=== PATIENT | female | born 1995 | race African-American/Black ===

== ENCOUNTER 2025-01-05 12:48 | Outpatient (CLI) | payer BC, SELFPAY ==
--- OUTSIDE RECORDS SUMMARY | 2025-01-05 12:53 | XMS_ITS | Continuity of Care Document ---
Author Organization [facility] Address [address] [place] [address] Phone Care Team Providers Care Regional Production Manager Name Role Phone Linda OD, Luan Unavailable Unavailable Allergies, Adverse Reactions, Alerts Substance Reaction Status Criticality No Known allergies Procedures Procedure Date Office/outpatient Visit, Est Vision Svcs Frames Purchases SV Poly Carb Sph Stewart To +/- 4 013 Anti-reflective Coating Office/outpatient Visit, Est Advance Directives Directive Yes / No Effective Date File Name Resuscitation Not Answered N/A N/A Life Support Not Answered N/A N/A Intubation Not Answered N/A N/A Antibiotics Not Answered N/A N/A IV Fluid Support Not Answered N/A N/A Tube Feed Not Answered N/A N/A Other Directive N/A N/A WARNING:The information contained in this section is historical and is provided for information only and does not constitute a legal document or any assurance that the information is still accurate. Please verify the information with the lopez of the legal document before using it for clinical purposes. Encounters Encounter Description Practice Location Reason(s) For Visit Diagnoses Date Provider Providers Copied on Encounter Office/outpat ient Visit, [facility], [address], [place], [place], [id number], tel:[phone] SEC [place] REFRACTIVE AMBLYOPIA Linda Roland. [address], [address], [place]. tel:[phone] Referring Provider: Luan Penn, [address] [facility] [address], [address]. tel:[phone] [facility], [address], [place], [place], [id number], [place] tel:[phone] SEC [facility] No Information [facility] . [address] [facility], [facility] [address], [place], [id number], [place]. tel:[phone] Referring Provider: Luan Penn, [address], [address]. tel:[phone] sulting Provider: Sonya Mariee, [address] [place], [address]. Office/outpat ient Visit, [facility], [address], [place], [place], [id number], [place] tel:[phone] SEC [facility] No Information Linda Roland. [address], [address], [place]. tel:[phone] Referring Provider: Luan Penn, [address], [address]. tel:[phone] Family History Family Member Type Diagnosis Age At Onset Unknown Problem (finding) Diabetes mellitus Payers Payer name Insurance type Covered republican ID Authoriza tion(s) No Information Social History Type Description Quantity Date Captured Comments Alcohol Use Details No Caffeine Use Details No Tobacco Use Status No Information Smoking Status Never smoker Non-Smoking Tobacco Use Details : No Details Available : No Details Available Sex Female Chief Complaint And Reason For Visit No Information Reason For Referral Reason For Referral No Information History Of Present Illness Encounter Date Complaint History Of Prese nt Illness No Information Functional Status Date Functional Assessmen t No Information Instructions Date Instruction Additional Infor phyllis - Return in 1 year w bunny Mckeon O.D. for Complete Exam. Related to REFRACTIVE AMBLYOPIA REFRACTIVE AMBLYOPIA OS - recommend SV specs for FTW. partial Rx OS:OD: +0.75DSOS: +2.00-0.32z310ftn to increase in 1yrEducational materials provided:[employer]. Related to REFRACTIVE AMBLYOPIA Assessments Type Assessment Date No Information Patient Care Teams Name Effective Dates (start - stop) Status Members No Information
--- OUTSIDE RECORDS SUMMARY | 2025-01-05 12:53 | XMS_ITS | Clinical Summary ---
Author Organization [facility] [employer] Address [address] [place] [address] Care Team Providers Care Jetting Machine Operator Name Role Phone Unavailable Primary Care Provider Unavailabl e Source Comments [facility] [employer],non-owned Affiliates and Associated Physician Practices is amultiple site organization consisting of ambulatory clinics and hospital sitesin [place], [place], [place] and [place]. This disclosure is being madepursuant to the Care Everywhere program and may not contain all information available regarding this patient. Last updated 18.[facility] Allergies No known active allergies Medications * Be aware that medications may not be up to date on this document. Alwaysverify current medications with the patient. Etonogestrel (NEXPLANON SC) Activ e Family History Medical History Relation Name Comments Cancer - Breast Mother spread to alina ne Relation Name Status Comments Father Alive Mother Social History Tobacco Use Types Packs/Day Years Used Date Smoking Tobacco: Never Smokeless Tobacco: Never Comments No Sex and Gender Information Value Date Recorded Sex Assigned at Not on file Legal Sex Female 9:45 AM CDT Gender Identity Not on file Sexual Orientation Not on file Last Filed Vital Signs Vital Sign Reading Time Taken Comments Blood Pressure 120/76 11/08/2020 9:15 AM CDT Pulse 87 11/08/2020 9:15 AM CDT Temperature 36.2 C (97.2 F) 11/08/2020 7:09 AM CDT Respiratory Rate 15 11/08/2020 9:15 AM CDT Oxygen Saturation 100% 11/08/2020 9:15 AM CDT Inhaled Oxygen Concentration - - Weight 60.6 kg (133 lb 8 oz) 11/08/2020 7:09 AM CDT Height 144.8 cm (4' 9 ) 11/08/2020 7:09 AM CDT Body Mass Index 28.89 11/08/2020 7:09 AM CDT Plan of Treatment Health Maintenance Due Date Last Done Comments HIV SCREENING 2011 HEPATITIS C SCREENING 03/16/2014 DTAP/TDAP/TD VACCINES (1 - Tdap) 2015 HEPATITIS B VACCINE (1 of 3 - 19+ 3-dose series) 2015 COVID-19 VACCINE ( - 2023-2 5 season) 2024 DEPRESSION SCREENING 08/27/2024 INFLUENZA VACCINE (Season Ended) 2025 ZOSTER VACCINE (1 of 2) 2046 HIB VACCINE Aged Out No longer eligi ble based on patient's age to complete this topic HPV VACCINE Aged Out No longer eligi ble based on patient's age to complete this topic MENINGOCOCCAL (Group B) VACC INE SHARED DECISION-MAKING Aged Out No longer eligibl e based on patient's age to complete this topic MENINGOCOCCAL GROUPS A/C/Y/W VACCINE Aged Out No longer eligible b ased on patient's age to complete this topic PNEUMOCOCCAL VACCINE Aged Out No long er eligible based on patient's age to complete this topic [place] [address] [address] [facility] [address] [id number] [employer] [place]
[2025-01-06 04:14] LABS: Progesterone 20.1 ng/mL
== END 2025-01-05 12:49 | disposition home or self-care (01) ==
LOC: ANHLAB 12:50
PROVIDERS: Visit Provider Nurse Practitioner Family
DX: O26.859 Spotting complicating pregnancy, unspecified trimester (principal); Z3A.00 Weeks of gestation of pregnancy not specified
CPT/HCPCS: 36415; 84144; 84702; 86850; 86900; 86901

== ENCOUNTER 2025-01-08 13:24 | Outpatient (CLI) | payer BC, SELFPAY ==
--- NOTE | ~2025-01-08 | US_ITS ---
EXAMINATION: US OB <=14 wk fetus w TV DATE: 01/08/2025 13:54 INDICATION: Amenorrhea TECHNIQUE: Real-time pelvic ultrasound utilizing both a transvaginal and transabdominal probe was pe rformed. The interpreting radiologist was not present for the study. COMPARISON: None. FINDINGS: The uterus measures 9.2 x 5.5 x 6.6 cm. There is an intrauterine gestational sac. A yolk sac and fet al pole are identified. The crown rump length measures 6 mm, which correlates with an estimated gesta tional age of 6 weeks and 3 days. heart motion is identified measuring 125 beats per minute (bp m) by M-mode Doppler. The right ovary measures 2.9 x 2.0 x 1.9 cm. The left ovary measures 4.4 x 2.3 x 2.4 cm. There is no free fluid in the pelvis. IMPRESSION: 1. Single living fetus with heart rate of 125 bpm. 2. Gestational age by ultrasound of 6 weeks 3 day(s) +/- 4 day(s) with ultrasound estimated date of delivery (BAO) of 08/31/2025. Reviewed, dictated and finalized at location A. IMPRESSION: 1. Single living fetus with heart rate of 125 bpm. 2. Gestational age by ultrasound of 6 weeks 3 day(s) +/- 4 day(s) with ultraso und estimated date of delivery (BAO) of 08/31/2025.
== END 2025-01-08 13:25 | disposition home or self-care (01) ==
LOC: MICIMG 13:25
PROVIDERS: PCP Nurse Practitioner Obstetrics & Gynecology; Visit Provider Nurse Practitioner Obstetrics & Gynecology
DX: N91.2 Amenorrhea, unspecified (principal); Z33.1 Pregnant state, incidental
CPT/HCPCS: 76801; 76817

== ENCOUNTER 2025-01-29 12:48 | Emergency (ER) | payer BC, SELFPAY ==
[2025-01-29 12:48] VITALS: BP 131/81; PULSE 91; RESP 16; TEMP 36.4; O2SAT 100
--- NOTE | 2025-01-29 13:45 | ED_ITS ---
HPI - Headache General Chief Complaint: Headache <Kat Ludwig APRN - Last Filed: 01/29/25 13:53> Stated Complaint: headache <Kat Ludwig APRN - Last Filed: 01/29/25 13:53> Time Seen by Provider: 01/29/25 13:45 <Kat Ludwig APRN - Last Filed: 01/29/25 13:53> Focused HPI: Patient is a 29-year-old female who presents to the ER with complaints of a headache. She reports she is 7 weeks . Patient she has had nausea associated with so she was recently put on Reglan, but has not picked that medication up yet. She endorses a history of migraine headaches and has had a CT scan in the past. Patient reports she has tried Tylenol at home but that has not given her any relief. She reports she has been able to keep food and water down, but has been experiencing a dry mouth. Patient also endorses some burning with urination. GENERAL: Well-appearing, well-nourished, and in no acute distress. HEAD: Normocephalic, atraumatic. CHEST: Clear to auscultation. ?No respiratory distress. HEART: Regular rate and rhythm.? NEURO: ?Alert and oriented x3. Patient screened in triage and initial orders placed.? ?Additional care and disposition to be based upon?diagnostic testing and treatment. <Kat Ludwig APRN - Last Filed: 01/29/25 13:53> History of Present Illness HPI Narrative: I agree with the above HPI <Lucas Delgado MD - Last Filed: 01/29/25 21:06> Related Data Home Medications: Home Medications ?Medication ?Instructions ?Recorded ?Confirmed ?Last Taken ?Type docosahexaenoic acid 200 mg mg PO 01/22/25 01/22/25 Unknown History capsule ( DHA) <Kat Ludwig APRN - Last Filed: 01/29/25 13:53> Allergies/Adverse Reactions: Allergies Allergy/AdvReac Type Severity Reaction Status Date / Time No Known Allergies Allergy Verified 01/29/25 13:55 <Kat Ludwig APRN - Last Filed: 01/29/25 13:53> Review of Systems 2 Review of Systems: All systems reviewed & are unremarkable except as noted in HPI and below <Lucas Delgado MD - Last Filed: 01/29/25 21:06> [facility] Surgical History: Surgical History Hx of colonoscopy <Katmax Ludwig APRN - Last Filed: 01/29/25 13:53> Family History Family History: Family History Mother Breast cancer Bone cancer Diabetes mellitus Hypertension CHF (congestive heart failure) Sibling Diabetes mellitus CHF (congestive heart failure) Other Carcinoma of colon uncle <Katmax Ludwig APRN - Last Filed: 01/29/25 13:53> Social History Social History: Social History Smoking status: Never smoker Alcohol intake: current Substance use: never <Kat Ludwig APRN - Last Filed: 01/29/25 13:53> Exam 2 Narrative: APPEARANCE: Well appearing, no pain, no distress, well-nourished. HEAD: normocephalic, atraumatic. EYES: PERRLA/EOMI, conjunctivae clear. NOSE: Normal no drainage EARS:TMS clear with good light reflex. THROAT: Pharynx clear, no exudate. NECK: Supple. No adenopathy, no masses. RESPIRATORY: Airway patent, respirations nonlabored. Clear to auscultation bilaterally, no rales, rhonchi, wheezing. CARDIOVASCULAR: Regular rate and rhythm without murmurs rubs or gallops. ABDOMINAL: Soft, nontender, nondistended, normal bowel sounds MUSCULOSKELETAL: Moves all extremities. Strength/ROM intact, No edema, No calf tenderness. NEURO: Alert. Cranial nerves II through XII intact. Good gait. Good coordination SKIN: Warm, dry. Normal Color <Lucas Delgado MD - Last Filed: 01/29/25 21:06> Course Vital Signs Vital signs: Vital Signs Temperature 97.5 F L 01/29/25 12:48 Pulse Rate 91 01/29/25 12:48 Respiratory Rate 16 01/29/25 12:48 Blood Pressure 131/81 01/29/25 12:48 Pulse Oximetry 100 01/29/25 12:48 Temperature 97.5 F L 01/29/25 12:48 Pulse Rate 105 H 01/29/25 15:40 Respiratory Rate 18 01/29/25 15:40 Blood Pressure 116/84 01/29/25 15:40 Pulse Oximetry 100 01/29/25 15:40 <Kat Ludwig, LEAD TECHNICAL WRITER - Last Filed: 01/29/25 13:53> Vital Signs Temperature 97.5 F L 01/29/25 12:48 Pulse Rate 91 01/29/25 12:48 Respiratory Rate 16 01/29/25 12:48 Blood Pressure 131/81 01/29/25 12:48 Pulse Oximetry 100 01/29/25 12:48 Temperature 97.5 F L 01/29/25 12:48 Pulse Rate 105 H 01/29/25 15:40 Respiratory Rate 18 01/29/25 15:40 Blood Pressure 116/84 01/29/25 15:40 Pulse Oximetry 100 01/29/25 15:40 <Lucas Delgado MD - Last Filed: 01/29/25 21:06> MDM - Headache MDM Narrative Medical decision making narrative: 21-year-old female who is approximately [address] follows up with Dr. Machuca presents emergency department for evaluation for headache which he states is similar to her previous migraine headaches. Patient is currently afebrile with no leukocytosis and hemoglobin of 11.4. Patient has no significant acute abnormalities on her CMP urine did have trace glucose but patient's glucose on her CMP was only 109. No evidence for infection her UA. Patient was treated with IV Reglan, IV Benadryl and a L of IV saline on re- evaluation patient states she does feel improved. Patient's blood pressure was not elevated. <Lucas Delgado MD - Last Filed: 01/29/25 21:06> Differential Diagnosis Differential diagnosis: Likely migraine, tension headache and headache <Lucas Delgado MD - Last Filed: 01/29/25 21:06> Lab Data Attestation: I reviewed the patient's lab results. <Lucas Delgado MD - Last Filed: 01/29/25 21:06> Result diagrams: 01/29/25 14:17 01/29/25 14:17 <Kat Ludwig, LEAD TECHNICAL WRITER - Last Filed: 01/29/25 13:53> Labs: Lab Results 01/29/25 01/29/25 Range/Units 13:56 14:17 WBC 6.3 (4.5-10.0) K/mm3 RBC 4.26 (4.2-5.4) M/mm3 Hgb 11.4 L (12.0-15.0) g/dL Hct 35.9 L (37.0-47.0) % MCV 84.3 (80-100) fl MCH 26.8 (26-34) pg MCHC 31.8 L (32-36) g/dl RDW 14.2 (11.5-14.5) % Plt Count 293 (150-375) k/mm3 MPV 9.8 (7.4-10.4) fl Immature Gran % (Auto) 0.3 (0-0.5) % Neut % (Auto) 66.7 (45.5-73.1) % Lymph % (Auto) 22.7 (18.3-44.2) % Union % (Auto) 7.3 (2.6-8.5) % Eos % (Auto) 2.5 (0-4.4) % Baso % (Auto) 0.5 (0.2-1.2) % Lymph # (Auto) 1.44 (0.9-3.2) K/mm3 Union # (Auto) 0.5 (0.1-0.6) K/mm3 Eos # (Auto) 0.2 (0-0.3) K/mm3 Baso # (Auto) 0.0 (0.0-0.1) K/mm3 Abs Immat Gran (auto) 0.02 (0.00-0.031) K/mm3 Absolute Neuts (auto) 4.2 (1.3-6.7) K/mm3 Absolute Nucleated RBC 0.000 (0.0-0.012) K/mm3 Nucleated RBC % 0.0 (0.0-0.2) % Sodium 134 L (137-145) mmol/L Potassium 3.8 (3.4-5.0) mmol/L Chloride 104 (98-107) mmol/L Carbon Dioxide 23 (22-30) mmol/L Anion Gap 7 (4-12) mmol/L BUN 11 (7-17) mg/dL Creatinine 0.57 L (0.7-1.0) mg/dL Estim Creat Clear Calc Not Reportable Estimated GFR > 60 (59 - ) Glucose 109 (65-110) mg/dL Calcium 9.2 (8.4-10.2) mg/dL Total Bilirubin 0.2 (0.2-1.3) mg/dL AST 23 (14-36) U/L ALT 12 (6-35) U/L Alkaline Phosphatase 54 (38-126) U/L Total Protein 7.3 (6.3-8.2) g/dL Albumin 3.9 (3.5-5.1) g/dL Beta HCG, Quant 307706.00 mIU/ML Urine Color Yellow (Yellow) Urine Appearance Clear (Clear) Urine pH 6.0 (5.0-9.0) Ur Specific [place] 1.015 (1.001-1.035) Urine Protein Negative (Negative) mg/dL Urine Glucose (UA) Trace H (Negative) mg/dL Urine Ketones Negative (Negative) mg/dL Ur Blood (Man) Negative (Negative) Urine Nitrate Negative (Negative) Urine Bilirubin Negative (Negative) Urine Urobilinogen 0.2 (<2.0) mg/dL Leukocyte Esterase Rfl Negative (Negative) MEENAKSHI/UL <Kat Ludwig, LEAD TECHNICAL WRITER - Last Filed: 01/29/25 13:53> Lab Results 01/29/25 01/29/25 Range/Units 13:56 14:17 WBC 6.3 (4.5-10.0) K/mm3 RBC 4.26 (4.2-5.4) M/mm3 Hgb 11.4 L (12.0-15.0) g/dL Hct 35.9 L (37.0-47.0) % MCV 84.3 (80-100) fl MCH 26.8 (26-34) pg MCHC 31.8 L (32-36) g/dl RDW 14.2 (11.5-14.5) % Plt Count 293 (150-375) k/mm3 MPV 9.8 (7.4-10.4) fl Immature Gran % (Auto) 0.3 (0-0.5) % Neut % (Auto) 66.7 (45.5-73.1) % Lymph % (Auto) 22.7 (18.3-44.2) % Union % (Auto) 7.3 (2.6-8.5) % Eos % (Auto) 2.5 (0-4.4) % Baso % (Auto) 0.5 (0.2-1.2) % Lymph # (Auto) 1.44 (0.9-3.2) K/mm3 Union # (Auto) 0.5 (0.1-0.6) K/mm3 Eos # (Auto) 0.2 (0-0.3) K/mm3 Baso # (Auto) 0.0 (0.0-0.1) K/mm3 Abs Immat Gran (auto) 0.02 (0.00-0.031) K/mm3 Absolute Neuts (auto) 4.2 (1.3-6.7) K/mm3 Absolute Nucleated RBC 0.000 (0.0-0.012) K/mm3 Nucleated RBC % 0.0 (0.0-0.2) % Sodium 134 L (137-145) mmol/L Potassium 3.8 (3.4-5.0) mmol/L Chloride 104 (98-107) mmol/L Carbon Dioxide 23 (22-30) mmol/L Anion Gap 7 (4-12) mmol/L BUN 11 (7-17) mg/dL Creatinine 0.57 L (0.7-1.0) mg/dL Estim Creat Clear Calc Not Reportable Estimated GFR > 60 (59 - ) Glucose 109 (65-110) mg/dL Calcium 9.2 (8.4-10.2) mg/dL Total Bilirubin 0.2 (0.2-1.3) mg/dL AST 23 (14-36) U/L ALT 12 (6-35) U/L Alkaline Phosphatase 54 (38-126) U/L Total Protein 7.3 (6.3-8.2) g/dL Albumin 3.9 (3.5-5.1) g/dL Beta HCG, Quant 146186.00 mIU/ML Urine Color Yellow (Yellow) Urine Appearance Clear (Clear) Urine pH 6.0 (5.0-9.0) Ur Specific [place] 1.015 (1.001-1.035) Urine Protein Negative (Negative) mg/dL Urine Glucose (UA) Trace H (Negative) mg/dL Urine Ketones Negative (Negative) mg/dL Ur Blood (Man) Negative (Negative) Urine Nitrate Negative (Negative) Urine Bilirubin Negative (Negative) Urine Urobilinogen 0.2 (<2.0) mg/dL Leukocyte Esterase Rfl Negative (Negative) MEENAKSHI/UL <Lucas Delgado MD - Last Filed: 01/29/25 21:06> Discharge Plan Discharge Clinical Impression: Migraine <Kat Ludwig APRN - Last Filed: 01/29/25 13:53> Patient Disposition: Home <Kat Ludwig APRN - Last Filed: 01/29/25 13:53> Condition: Stable <Kat Ludwig APRN - Last Filed: 01/29/25 13:53> Instructions: Antibiotic Form, Migraine Headache (ED) <Kat Ludwig APRN - Last Filed: 01/29/25 13:53> Additional Instructions: Your urine did have trace amount of glucose. Have close follow-up with OB Gyne. Drink plenty of fluids. Tylenol for pain control. <Kat Ludwig APRN - Last Filed: 01/29/25 13:53> Patient Language: Palauan <Kat Ludwig APRN - Last Filed: 01/29/25 13:53> Prescriptions: No Action DHA 200 mg capsule PO metoclopramide HCl [Reglan] 10 mg tablet 10 mg PO Q6H PRN (Reason: nausea and vomiting) Qty: 20 0RF <Kat Ludwig APRN - Last Filed: 01/29/25 13:53> Follow-up/Referrals: PHYSICIAN NOT ON STAFF,NONSTAFF [Non-Staff] - <Kat Ludwig APRN - Last Filed: 01/29/25 13:53>
[2025-01-29 14:23] LABS: Add Urine Microscopic? NO; Appearance Urine Clear (Clear); Bilirubin Urine Negative (Negative); Blood Urine Negative (Negative); Color Urine Yellow (Yellow); Glucose Urine UA Trace mg/dL (Negative); Ketones Urine Negative (Negative); Leukocyte Esterase Ur Negative LEU/UL (Negative); Nitrate Urine Negative (Negative); Protein Urine Negative (Negative); Specific Grav Ur 1.015 (1.001-1.035); Urobilinogen Urine 0.2 mg/dL (<2.0)
[2025-01-29 14:25] LABS: Basophils Percent Auto 0.5 % (0.2-1.2); Eosinophils Absolute Auto 0.2 K/mm3 (0-0.3); Eosinophils Percent Auto 2.5 % (0-4.4); Hematocrit 35.9 % (37.0-47.0); Hemoglobin 11.4 g/dL (12.0-15.0); Immature Granulocyte Absolute 0.02 K/mm3 (0.00-0.031); Immature Granulocyte Percent A 0.3 % (0-0.5); Lymphocytes Absolute Auto 1.44 K/mm3 (0.9-3.2); Lymphocytes Percent Auto 22.7 % (18.3-44.2); Mean Corpuscular HGB Conc 31.8 g/dl (32-36); Mean Corpuscular Hemoglobin 26.8 pg (26-34); Mean Corpuscular Volume 84.3 fl (80-100); Mean Platelet Volume 9.8 fl (7.4-10.4); Monocytes Absolute Auto 0.5 K/mm3 (0.1-0.6); Monocytes Percent Auto 7.3 % (2.6-8.5); Neutrophils Absolute Auto 4.2 K/mm3 (1.3-6.7); Neutrophils Percent Auto 66.7 % (45.5-73.1); Platelet Count Result 293 k/mm3 (150-375); Red Blood Count 4.26 M/mm3 (4.2-5.4); Red Cell Distribution Width 14.2 % (11.5-14.5); White Blood Count 6.3 K/mm3 (4.5-10.0)
[2025-01-29] MEDS: LACTATED RINGERS 1,000 ML 999 ML IV CONT (14:34)
[2025-01-29] MEDS: diphenhydrAMINE HCl INJ 50 MG/ML VIAL 25 MG IV PUSH (14:35)
[2025-01-29] MEDS: METOCLOPRAMIDE HCL INJ 10 MG/2 ML VIAL IV PUSH (14:35)
[2025-01-29 14:42] LABS: Alanine Aminotransferase 12 U/L (6-35); Albumin Level 3.9 g/dL (3.5-5.1); Alkaline Phosphatase 54 U/L (38-126); Anion Gap 7 mmol/L (4-12); Aspartate Amino Transferase 23 U/L (14-36); Bilirubin,Total 0.2 mg/dL (0.2-1.3); Blood Urea Nitrogen 11 mg/dL (7-17); Calcium 9.2 mg/dL (8.4-10.2); Carbon Dioxide 23 mmol/L (22-30); Chloride 104 mmol/L (98-107); Estimated Glomerular Filt Rate > 60; Glucose 109 mg/dL (65-110); Potassium 3.8 mmol/L (3.4-5.0); Sodium 134 mmol/L (137-145); Total Protein 7.3 g/dL (6.3-8.2)
[2025-01-29 15:40] VITALS: BP 116/84; PULSE 105; RESP 18; O2SAT 100
== END 2025-01-29 15:42 | disposition home or self-care (01) ==
PROVIDERS: Registered Nurse; Emergency Provider Emergency Medicine
DX: O99.351 Diseases of the nervous system complicating pregnancy, first trimester (principal); G43.909 Migraine, unspecified, not intractable, without status migrainosus; Z3A.01 Less than 8 weeks gestation of pregnancy
CPT/HCPCS: 36415; 80053; 81003; 84702; 85025; 96361; 96374; 96375; 99284; J1200; J2765; J7120